=== PATIENT | male | born 1965 | race Caucasian/White ===

== ENCOUNTER 2025-07-28 13:14 | Outpatient (CLI) | payer OTHER, SELFPAY ==
--- NOTE | ~2025-07-28 | MR_ITS ---
EXAMINATION: MR brain/brain stem wo con DATE: 07/28/2025 13:49 INDICATION: Other localized visual field defect, unspecified. TECHNIQUE: Magnetic resonance imaging (MRI) of the brain and brainstem was performed without intravenous contrast. COMPARISON: None. 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 There are scattered areas of nonspecific increased T2-weighted signal intensity in the cerebral and cerebellar white matter. There is no intracranial hemorrhage, acute infarction, or abnormal intracranial mass lesion. The ventricles are normal in size. There is mild mucosal thickening in the paranasal sinuses. The orbits are normal. The mastoid air cells are normal. IMPRESSION: 1. 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 2. Mild nonspecific cerebral and cerebellar white matter disease, which likely represents chronic small vessel ischemic disease. Reviewed, dictated and finalized at location E.
== END 2025-07-28 13:15 | disposition home or self-care (01) ==
LOC: MICIMG 13:15
PROVIDERS: PCP Nurse Practitioner Family; Visit Provider Nurse Practitioner Family
DX: H53.459 Other localized visual field defect, unspecified eye (principal); R90.82 White matter disease, unspecified
CPT/HCPCS: 70551